=== PATIENT | male | born 1950 | race Caucasian/White ===

== ENCOUNTER 2022-12-16 22:29 | Inpatient (IN) | payer OTHER ==
--- OUTSIDE RECORDS SUMMARY | 2022-12-16 22:33 | XMS REPORT | Continuity of Care Document ---
:1950 Author Organization [facility] t Address [address] [place] [address] Care Team Providers Name Role Phone Villasana_T Attending Clinician Unavailable Villasana_T Admitting Clinician Unavailable Payers Payer Name Policy Type Policy Number Effective Date Expiration Date Lauri LEMUS (MEDICARE [id number] 2016 REPLACEMENT PPO) 00:00:00 Problems Condition Condition Condition Status Onset Resolution Last Treating Co mments Source Name Details Category Date Date Treatment Clinician Date Subclinica Subclinica Problem Active [facility] l 3-30 Family hyperthyro Hyperthyro 00:00: Pr actic idism idism 00 e Thyroiditi Thyroiditi Problem Active 2016-10 [facility] 2-13 Family 00:00: Practic 00 e Vitamin Vitamin Problem Active 2016-10 [facility] B12 B12 2-13 Family deficiency Deficiency 00:00: Pr actic (non (Non 00 e anemic) Anemic) Prediabete Prediabete Problem Active [facility] s 6-16 Family 00:00: Practic 00 e 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[facility] 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 00 e Nausea Nausea Problem Active 2014-102017-10-07 [facility] 1-10 00:00:00 Family 00:00: Practic 00 e Acute Acute Problem Active 2014-102017-04-10 [facility] thyroiditi Thyroiditi 2-14 00:00:00 Family s s 00:00: Practic 00 e High High Problem Active 2014-102017-04-10 [facility] hemoglobin Hemoglobin 2-14 00:00:00 Family A1c level a1C Level 00:00: Prac tic 00 e Toxic Toxic Problem Active 2014-102016-11-11 [facility] diffuse Diffuse 1-10 00:00:00 Family goiter Goiter 00:00: Practic with no with No 00 e crisis Crisis Allergies, Adverse Reactions, Alerts Allergy Allergy Status Severity Reaction(s) Onset Inactive Treating Comm ents Source Name Type Date Date Clinician Gala Allergy Active 2014-10 [facility] 11-04 Family substanc 00:00: Practic e 00 e Social History Smoking Status Start Date Stop Date Source Never Smoker [facility] Medications Ordered Filled Start Stop Current Ordering Indication Dosage Frequency Signature Comments Components Source Medication Medication Date Date Medication? Clinician (SIG) Name Name aspirin 81 aspirin 81 No 1 Q1D aspirin 81 [facility] mg mg mg Family tablet,maximo tablet,maximo tablet,del Practic yed release yed release ayed e Take 1 Take 1 release tablet tablet Take 1 every day every day tablet by oral by oral every day route. route. by oral route. melatonin melatonin No melatonin [facility] take (5mg) take (5mg) take (5mg) Family 1 tablet 1 tablet 1 tablet Pra ctic daily daily daily e metformin metformin No metformin [facility] ER 500 mg ER 500 mg ER 500 mg Family tablet,exte tablet,exte tablet,ext Practic nded nded ended e release 24 release 24 release 24 hr hr hr OneTouch OneTouch No OneTouch Ovidio william Delica Delica Delica Family Lancets 30 Lancets 30 Lancets 30 Practic gauge gauge gauge e OneTouch OneTouch No OneTouch Ovidio william Verio Verio Verio Family strips strips strips Practic e pravastatin pravastatin No pravastati [facility] 20 mg 20 mg n 20 mg Family tablet tablet tablet Practic e Vitamin B12 Vitamin B12 No Vitamin [facility] 5000 mcg 5000 mcg B12 5000 Fam sommer daily daily mcg daily Practic e Flucelvax Flucelvax 2017- No Flucelvax [facility] Quad 01-22 Quad Family 00:00 [id number] Practic (PF) 60 mcg (PF) 60 mcg :00 (PF) 60 e (15 mcg x (15 mcg x mcg (15 4)/0.5 mL 4)/0.5 mL mcg x IM syringe IM syringe 4)/0.5 mL IM syringe Lumigan Stephon 2017- No Stephon [facility] 0.01 % eye 0.01 % eye 01-22 0.01 % eye Family drops drops 00:00 drops Practic :00 e Prevnar 13 Prevnar 13 2018- No Prevnar 13 [facility] (PF) 0.5 mL (PF) 0.5 mL 01-22 (PF) 0.5 Family intramuscul intramuscul 00:00 mL Practic ar syringe ar syringe :00 intramuscu e lar syringe One Touch One Touch One Touch [facility] test strips test strips 10-07 test Family check blood check blood 00:00 strips Practic sugars once sugars once :00 check e a day a day blood sugars once a day azithromyci azithromyci azithromyc [facility] n 250 mg n 250 mg 04-10 in 250 mg F amily tablet tablet 00:00 tablet Practic :00 e propranolol propranolol propranolo [facility] 10 mg 10 mg 04-10 l 10 mg Family tablet tablet 00:00 tablet Practic :00 e Vital Signs Vital Name Observation Time Observation Value Comments Source BP Diastolic 2018-01-22 00:00:00 84 mm[Hg] [facility] Height 2018-01-22 00:00:00 66 [in_i] [facility] BMI (Body Mass 2018-01-22 00:00:00 29.1 kg/m2 [facility] BP Systolic 2018-01-22 00:00:00 136 mm[Hg] [facility] Body Weight 2018-01-22 00:00:00 180 [lb_av] [facility] BP Diastolic 2017-10-07 00:00:00 70 mm[Hg] [facility] Height 2017-10-07 00:00:00 66 [in_i] [facility] BMI (Body Mass 2017-10-07 00:00:00 30.2 kg/m2 [facility] BP Systolic 2017-10-07 00:00:00 150 mm[Hg] [facility] Body Weight 2017-10-07 00:00:00 187 [lb_av] [facility] BP Diastolic 2017-04-10 00:00:00 83 mm[Hg] [facility] Height 2017-04-10 00:00:00 66 [in_i] [facility] BMI (Body Mass 2017-04-10 00:00:00 27.8 kg/m2 [facility] BP Systolic 2017-04-10 00:00:00 139 mm[Hg] [facility] Body Weight 2017-04-10 00:00:00 172 [lb_av] [facility] BP Diastolic 2016-11-11 00:00:00 86 mm[Hg] [facility] Height 2016-11-11 00:00:00 66 [in_i] [facility] BMI (Body Mass 2016-11-11 00:00:00 29.4 kg/m2 [facility] BP Systolic 2016-11-11 00:00:00 143 mm[Hg] [facility] Body Weight 2016-11-11 00:00:00 182 [lb_av] [facility] BP Diastolic 2016-04-08 00:00:00 76 mm[Hg] [facility] Height 2016-04-08 00:00:00 66 [in_i] [facility] BMI (Body Mass 2016-04-08 00:00:00 28.50 kg/m2 [facility] BP Systolic 2016-04-08 00:00:00 122 mm[Hg] [facility] Body Weight 2016-04-08 00:00:00 176.6 [lb_av] [facility] BP Diastolic 2016-01-09 00:00:00 74 mm[Hg] [facility] Height 2016-01-09 00:00:00 66 [in_i] [facility] BMI (Body Mass 2016-01-09 00:00:00 29.83 kg/m2 [facility] BP Systolic 2016-01-09 00:00:00 130 mm[Hg] [facility] Body Weight 2016-01-09 00:00:00 184.8 [lb_av] [facility] BP Diastolic 2015-11-20 00:00:00 80 mm[Hg] [facility] Height 2015-11-20 00:00:00 66 [in_i] [facility] BMI (Body Mass 2015-11-20 00:00:00 30.44 kg/m2 [facility] BP Systolic 2015-11-20 00:00:00 130 mm[Hg] [facility] Body Weight 2015-11-20 00:00:00 188.6 [lb_av] [facility] BP Diastolic 2015-10-08 00:00:00 80 mm[Hg] [facility] Height 2015-10-08 00:00:00 66 [in_i] [facility] BMI (Body Mass 2015-10-08 00:00:00 30.60 kg/m2 [facility] BP Systolic 2015-10-08 00:00:00 156 mm[Hg] [facility] Body Weight 2015-10-08 00:00:00 189.6 [lb_av] [facility] BP Diastolic 2015-09-04 00:00:00 82 mm[Hg] [facility] BP Systolic 2015-09-04 00:00:00 146 mm[Hg] [facility] Height 2015-09-04 00:00:00 66 [in_i] [facility] BMI (Body Mass 2015-09-04 00:00:00 31.42 kg/m2 [facility] Family Index) Practice Body Weight 2015-09-04 00:00:00 194.7 [lb_av] [facility] Procedures Procedure Date / Time Performed Performing Clinician [facility] e [place], thyroid 2018-01-22 00:00:00 [facility] bone density 2018-01-22 00:00:00 [facility] [place], thyroid 2018-01-21 00:00:00 [facility] bone density 2017-10-09 00:00:00 [facility] Encounters Start End Encounter Admission Attending Care Care Encounter Source Date/Time Date/Time Type Type Clinicians Facility Department ID 2020-11-28 2020-11-28 [phone] [facility] 10:14:00 10:14:00 [id number] Family Practic e 2018-01-22 2018-01-22 Hope D [facility] [place] - [id number] [facility] 00:00:00 00:00:00 Leela Glass: [id number] [place] [address], [place] [id number] , Ph. 2017-10-07 2017-10-07 [facility] D [facility] [place] - [id number] [facility] 00:00:00 00:00:00 Leela Glass: [id number] - e [facility] [address], [place] [address] , Ph. 2017-04-10 2017-04-10 [facility] D [facility] [place] - [id number] [facility] 00:00:00 00:00:00 Leela Glass: [id number] - e [facility] [address], [place] [address] , Ph. 2016-11-11 2016-11-11 Grace Parra [facility] [place] - [id number] V illage 00:00:00 00:00:00 Leela Glass: [id number] - e [facility], [facility] [address], [place] [address] , Ph. Results Test Description Test Time Test Comments Results Result Comments Source Cobalamin (Vitamin B12) [Mass/volume] in Serum or Plasma 201 05-06-15 11:09:00 Test Item Value Reference Range Interpretation Comme nts vitamin B12 (test code = vitamin B12) >2000 213-816 H [facility] - Serum or Plasma 2017-10-08 15:34:00 Test Item Value Reference Range Interpretation Comments ALT (test code = ALT) 30 U/L 0-55 AST (test code = AST) 25 U/L 5-34 BUN (test code = BUN) 18.9 mg/dL 8.4-25.7 alk phos (test code = alk phos) 76 unit/L 40-150 glucose (test code = glucose) 106 mg/dL 70-99 H albumin (test code = albumin) 3.7 g/dL 3.5-5.0 creatinine (test code = 0.78 mg/dL 0.72-1.25 creatinine) eGFR non- (test >60 >60 code = eGFR non-) total bilirubin (test code = 0.6 mg/dL 0.2-1.2 total bilirubin) eGFR - (test >60 >60 code = eGFR - ) sodium (test code = sodium) 142 mEq/L 136-145 potassium (test code = potassium) 4.1 mEq/L 3.5-5.1 chloride (test code = chloride) 109 mmol/L 98-107 H total protein (test code = total 6.3 g/dL 6.4-8.3 L protein) calcium (test code = calcium) 9.1 mg/dL 8.8-10.0 CO2 (test code = CO2) 29.2 mmol/L 23.0-31.0 anion gap (test code = anion gap) 4 calc [facility] [Mass/volume] in Serum or [id number] 15:34:00 Test Item Value Reference Range Interpretation Comments T3 free (test code = T3 free) 3.27 pg/mL 1.71-3.71 [facility] [Mass/volume] in Serum or Plasma 2017-10-08 15:34:00 Test Item Value Reference Range Interpretation Comments T4 free (test code = T4 free) 1.27 NG/dL 0.70-1.48 [facility] [Units/volume] in Serum or [id number] 15:34:00 Test Item Value Reference Range Interpretation Comments TSH (test code = TSH) 0.003 uIU/mL 0.350-4.940 L [facility] Free [Mass/volume] in Serum or [id number] 07:25:00 Test Item Value Reference Range Interpretation Comments T3 free (test code = T3 free) 2.2 pg/mL 1.7-3.7 [facility] [Mass/volume] in Serum or Plasma 2016-11-12 07:25:00 Test Item Value Reference Range Interpretation Comments T4 free (test code = T4 free) 1.2 NG/dL 0.7-1.5 [facility] [Units/volume] in Serum or [id number] 07:25:00 Test Item Value Reference Range Interpretation Comments TSH (test code = TSH) 0.0981 uIU/mL 0.3500-4.9400 L [facility]/Hemoglobin.total in [id number] 00:00:00 Test Item Value Reference Range Interpretation Comments hemoglobin A1C (test code 6.3 % of total HGB <5.7 H = hemoglobin A1C) EAG (mg/dL) (test code = 134 (calc) EAG (mg/dL)) EAG (mmol/L) (test code = 7.4 (calc) EAG (mmol/L)) [facility] - Serum or Plasma 2016-04-09 00:00:00 Test Item Value Reference Range Interpretation Comments glucose (test code = 100 mg/dL 65-99 H glucose) urea nitrogen (BUN) (test 25 mg/dL 7-25 code = urea nitrogen (BUN)) creatinine (test code = 0.94 mg/dL 0.70-1.25 creatinine) eGFR non-afr. gambian (test 84 mL/min/1.73m2 > or = 60 code = eGFR non-afr. gambian) eGFR (test 97 mL/min/1.73m2 > or = 60 code = eGFR ) BUN/creatinine ratio (test not applicable 6 code = BUN/creatinine ratio) sodium (test code = sodium) 136 mmol/L 135-146 potassium (test code = 5.0 mmol/L 3.5-5.3 potassium) chloride (test code = 102 mmol/L 98-110 chloride) carbon dioxide (test code = 22 mmol/L 19-30 carbon dioxide) calcium (test code = 9.3 mg/dL 8.6-10.3 calcium) protein, total (test code = 7.3 g/dL 6.1-8.1 protein, total) albumin (test code = 4.6 g/dL 3.6-5.1 albumin) globulin (test code = 2.7 g/dL (calc) 1.9-3.7 globulin) albumin/globulin ratio (test 1.7 (calc) 1.0-2.5 code = albumin/globulin ratio) bilirubin, total (test code 0.9 mg/dL 0.2-1.2 = bilirubin, total) alkaline phosphatase (test 84 U/L 40-115 code = alkaline phosphatase) AST (test code = AST) 22 U/L 10-35 ALT (test code = ALT) 24 U/L 9-46 [facility] [Units/volume] in Serum or [id number] 00:00:00 Test Item Value Reference Range Interpretation Comments TSH (test code = TSH) 0.16 mIU/L 0.40-4.50 L [facility] (T4) free [Mass/volume] in Serum or Plasma 2016-04-09 00:00:00 Test Item Value Reference Range Interpretation Comments T4, free (test code = T4, free) 1.2 NG/dL 0.8-1.8 [facility] Free [Mass/volume] in Serum or [id number] 00:00:00 Test Item Value Reference Range Interpretation Comments T3, free (test code = T3, free) 3.4 pg/mL 2.3-4.2 [facility] [Units/volume] in Serum or [id number] 00:00:00 Test Item Value Reference Range Interpretation Comments TSH (test code = TSH) 0.04 mIU/L 0.40-4.50 L [facility] (T4[facility] free [Mass/volume] in Serum or Plasma 2016-01-10 00:00:00 Test Item Value Reference Range Interpretation Comments T4, free (test code = T4, free) 1.3 NG/dL 0.8-1.8 [facility] Free [Mass/volume] in Serum or [id number] 00:00:00 Test Item Value Reference Range Interpretation Comments T3, free (test code = T3, free) 3.8 pg/mL 2.3-4.2 [facility] A1c/Hemoglobin.total in [id number] 00:00:00 Test Item Value Reference Range Interpretation Comments hemoglobin A1C (test code 6.5 % of total HGB <5.7 H = hemoglobin A1C) EAG (mg/dL) (test code = 140 (calc) EAG (mg/dL)) EAG (mmol/L) (test code = 7.7 (calc) EAG (mmol/L)) [facility] [Units/volume] in Serum or [id number] 00:00:00 Test Item Value Reference Range Interpretation Comments TSH (test code = TSH) 0.09 mIU/L 0.40-4.50 L [facility] (T4) free [Mass/volume] in Serum or Plasma 2015-11-21 00:00:00 Test Item Value Reference Range Interpretation Comments T4, free (test code = T4, free) 1.3 NG/dL 0.8-1.8 [facility] Free [Mass/volume] in Serum or [id number] 00:00:00 Test Item Value Reference Range Interpretation Comments T3, free (test code = T3, free) 3.7 pg/mL 2.3-4.2 [facility]
[2022-12-16 23:51] LABS: Protime INR 1.16
[2022-12-17 00:03] LABS: Absolute Lymphocytes (CBC) 0.5 K/uL (0.7-4.9); Hematocrit 44.6 % (39.6-49.0); Lymphocytes % 5.1 % (15.3-44.8); MCV 92.8 fL (80-100); MPV 8.2 fL (7.6-11.3); RBC Red Blood Cell Count 4.81 M/uL (4.33-5.43)
[2022-12-17 00:30] LABS: Albumin 3.6 g/dL (3.4-5.0); Bilirubin Direct 0.2 mg/dL (0-0.2); Bilirubin Total 0.6 mg/dL (0.2-1.0); Potassium 4.1 mmol/L (3.5-5.1); Protein, Total 7.2 g/dL (6.4-8.2); Troponin High Sensitivity 50.8 pg/mL (<58.9)
[2022-12-17] MEDS ORDERED: FOLIC ACID 1 MG TABLET ONE (01:00)
[2022-12-17] MEDS ORDERED: CLOPIDOGREL 75 MG TABLET ONE (01:00)
[2022-12-17] MEDS ORDERED: ASPIRIN EC 325 MG TABLET PO ONE (01:01)
--- NOTE | 2022-12-17 01:11 | EDPHYS ---
Physician Documentation [facility] Name: Savage Ignacio Age: 72 yrs Sex: Male : 1950 Arrival Date: 12/16/2022 Time: 22:33 Bed 14 Private MD: ED Physician Kendell Little HPI: 12/17 03:04 This 72 yrs old Male presents to ER via Wheelchair with complaints of Altered Mental kdr Status. 03:04 Patient was brought to the hospital this evening by a friend who reports that a [facility] neighbor had seen him pull into his driveway in an odd manner around 2:00 today. Somewhat later the patient was checked on by the neighbor and found that he was sleeping in the car in his driveway. He did not further intervene at that time but later this evening a neighbor from across the street who brought him to the ED checked on him. He found his speech to be confused and not at his baseline. Seem to be having some aphasia. He was also confused and unable to name the month.. Onset: The symptoms/episode began/occurred this morning, today. Severity of symptoms: At their worst the symptoms were mild moderate just prior to arrival, in the emergency department the symptoms are unchanged. The patient has not experienced similar symptoms in the past. The patient has not recently seen a physician. Exact onset of his altered mental status and speech difficulty is not known. Again the patient was noted to have pulled into his driveway but at an auto angle somewhere around 2:00 today. Did not get out of the car at that time but apparently went to sleep. Historical: - Allergies: 12/16 22:57 Codeine; pf1 - Home Meds: 12/17 00:46 metformin 500 mg Oral tab 1 tab 2 times per day [Active]; pravastatin 20 mg oral tab 1 kl tab once daily [Active]; lumican [Active]; - PMHx: 00:46 Chrohns; NIDDM; Hypercholesterolemia; kl - PSHx: 00:46 colostomy; kl - Immunization history:: Adult Immunizations up to date. - Social history:: Smoking status: Patient denies any tobacco usage or history of. ROS: 03:04 Constitutional: Negative for fever, chills, and weight loss, Eyes: Negative for injury, kdr pain, redness, and discharge, Neck: Negative for injury, pain, and swelling, Cardiovascular: Negative for chest pain, palpitations, and edema, Respiratory: Negative for shortness of breath, cough, wheezing, and pleuritic chest pain, Abdomen/GI: Negative for abdominal pain, nausea, vomiting, diarrhea, and constipation, Back: Negative for injury and pain, : Negative for injury, bleeding, discharge, and swelling, MS/Extremity: Negative for injury and deformity, Skin: Negative for injury, rash, and discoloration, Psych: Negative for depression, anxiety, suicide ideation, homicidal ideation, and hallucinations, Allergy/Immunology: Negative for hives, rash, and allergies, Endocrine: Negative for neck swelling, polydipsia, polyuria, polyphagia, and marked weight changes, Hematologic/Lymphatic: Negative for swollen nodes, abnormal bleeding, and unusual bruising. 03:04 Neuro: Positive for altered mental status, speech changes, weakness. Exam: 03:04 Constitutional: This is a well developed, well nourished patient who is awake, alert, kdr and in no acute distress. Head/Face: Normocephalic, atraumatic. Eyes: Pupils equal round and reactive to light, extra-ocular motions intact. Lids and lashes normal. Conjunctiva and sclera are non-icteric and not injected. Cornea within normal limits. Periorbital areas with no swelling, redness, or edema. Neck: Trachea midline, no thyromegaly or masses palpated, and no cervical lymphadenopathy. Supple, full range of motion without nuchal rigidity, or vertebral point tenderness. No Meningismus. Chest/axilla: Normal chest wall appearance and motion. Nontender with no deformity. No lesions are appreciated. Cardiovascular: Regular rate and rhythm with a normal S1 and S2. No gallops, murmurs, or rubs. Normal PMI, no JVD. No pulse deficits. Respiratory: Lungs have equal breath sounds bilaterally, clear to auscultation and percussion. No rales, rhonchi or wheezes noted. No increased work of breathing, no retractions or nasal flaring. Abdomen/GI: Soft, non-tender, with normal bowel sounds. No distension or tympany. No guarding or rebound. No evidence of tenderness throughout. Back: No spinal tenderness. No costovertebral tenderness. Full range of motion. Skin: Warm, dry with normal turgor. Normal color with no rashes, no lesions, and no evidence of cellulitis. MS/ Extremity: Pulses equal, no cyanosis. Neurovascular intact. Full, normal range of motion. Psych: Awake, alert, with orientation to person, place and time. Behavior, mood, and affect are within normal limits. 03:04 Neuro: Orientation: Patient is oriented to place and year but not circumstances or month. Vital Signs: 12/16 22:52 BP 142 / 76; Pulse 95; Resp 18; Temp 100.2; Pulse Ox 98% on R/A; Weight 86.18 kg; pf1 Height 5 ft. 8 in. (172.72 cm); Pain 0/10; 12/17 00:50 BP 136 / 62; Pulse 87; Resp 16; Pulse Ox 94% ; Weight 89.36 kg (M); Height 5 ft. 8 in. kl (172.72 cm); 02:03 BP 142 / 66; Pulse 82; Resp 18; Pulse Ox 95% on R/A; kl 04:22 BP 136 / 71; Pulse 80; Resp 18; Temp 99.6(O); Pulse Ox 99% on R/A; kl 00:50 Body Mass Index 29.95 (89.36 kg, 172.72 cm) kl NIH Stroke Scale Scores: 12/16 23:42 NIHSS Score: 1 kl MDM: 12/17 01:11 Patient medically screened. kdr 03:04 Data reviewed: vital signs, nurses notes, lab test result(s), radiologic studies. kdr Management of patient was discussed with the following: Primary Care Provider: poli. I considered the following discharge prescriptions or medication management in the emergency department Medications were administered in the Emergency Department. See MAR. Counseling: I had a detailed discussion with the patient and/or guardian regarding: the historical points, exam findings, and any diagnostic results supporting the discharge/admit diagnosis, lab results, radiology results, the need for further work-up and treatment in the hospital. 12/16 22:56 Order name: Basic Metabolic Panel kdr 12/16 22:56 Order name: CBC with Diff kdr 12/16 22:56 Order name: Hepatic Function kdr 12/16 22:56 Order name: High Sensitivity Troponin kdr 12/16 22:56 Order name: Protime (+inr) kdr 12/16 22:56 Order name: Ptt, Activated kdr 12/16 22:58 Order name: Glucose, Ancillary Testing; Complete Time: 00:14 EDMS 12/16 23:14 Order name: Urine Culture kdr 12/16 23:51 Order name: Protime (+INR); Complete Time: 00:14 EDMS 12/16 23:51 Order name: PTT, Activated Partial Thromb; Complete Time: 00:14 EDMS 12/17 00:15 Order name: CBC with Automated Diff; Complete Time: 00:19 EDMS 12/17 00:30 Order name: Basic Metabolic Panel; Complete Time: 00:31 EDMS 12/17 00:30 Order name: Liver (Hepatic) Function; Complete Time: 00:31 EDMS 12/17 00:30 Order name: Troponin High Sensitivity; Complete Time: 00:31 EDMS 12/16 22:56 Order name: CT Stroke Brain w/o Contrast kdr 12/16 22:56 Order name: Stroke CXR 1 View kdr 12/16 22:56 Order name: EKG; Complete Time: 22:58 kdr 12/17 00:17 Order name: CT Neck Angio kdr 12/17 00:17 Order name: CT Head Angio kdr 12/17 00:54 Order name: SARS RAPID bb 12/17 06:12 Order name: SARS-COV-2 Antigen Rapid; Complete Time: 08:06 EDMS 12/17 07:54 Order name: Troponin High Sensitivity; Complete Time: 08:06 EDND 12/17 09:47 Order name: MRI; Complete Time: 10:11 EDMS 12/17 09:53 Order name: MRI; Complete Time: 10:11 EDND 12/17 10:16 Order name: MRI; Complete Time: 10:21 EDND 12/17 11:00 Order name: Urine Dipstick-Ancillary EDND 12/16 22:56 Order name: Accucheck; Complete Time: 00:59 kdr 12/16 22:56 Order name: Cardiac monitoring; Complete Time: 00:59 kdr 12/16 22:56 Order name: EKG - Nurse/Tech; Complete Time: 00:59 kdr 12/16 22:56 Order name: IV Saline Lock; Complete Time: 23:24 kdr 12/16 22:56 Order name: Labs collected and sent; Complete Time: 23:24 kdr 12/16 22:56 Order name: NPO; Complete Time: 00:59 kdr 12/16 22:56 Order name: O2 Per Protocol; Complete Time: 00:59 kdr 12/16 22:56 Order name: O2 Sat Monitoring; Complete Time: 00:59 kdr 12/16 22:56 Order name: Stroke Swallow Screen; Complete Time: 00:58 kdr 12/16 23:14 Order name: Urine Dipstick-Ancillary (obtain specimen); Complete Time: 11:01 kdr 12/17 12:46 Order name: Diet Regular; Complete Time: 12:47 ph Administered Medications: 00:58 Drug: Aspirin 325 mg Route: PO; kl 05:37 Follow up: Response: No adverse reaction kl 00:58 Drug: PlaVIX (clopidogrel) 75 mg Route: PO; kl 05:37 Follow up: Response: No adverse reaction kl 00:58 Drug: foLIC Acid 1 mg Route: PO; kl 05:37 Follow up: Response: No adverse reaction kl 08:15 Drug: NS 0.9% 1000 ml Route: IV; Rate: 1 bolus; Site: right antecubital; ap3 Point of Care Testing: Blood Glucose: 04: Blood Glucose: 193 mg/dL; kl Ranges: Critical Glucose Levels:Adult <50 mg/dl or >400 mg/dl <40 mg/dl or >180 mg/dl Disposition Summary: 12/17/22 01:11 Hospitalization Ordered Hospitalization Status: Inpatient Admission kdr Provider: Fred Rolon Condition: Stable kdr Problem: new kdr Symptoms: have improved kdr Bed/Room Type: Standard kdr Location: Telemetry/MedSurg (Inpatient)(12/17/22 13:30) em1 Room Assignment: [facility](12/17/22 13:30) em1 Diagnosis - Altered mental status, unspecified kdr - Confusion kdr Forms: - Medication Reconciliation Form kdr - SBAR form kdr NIH Stroke Scale - NIH Stroke Score Date: 12/16/2022 Time: 23:42 Total Score = 1 1a. Level of Consciousness (LOC) - 0(Alert) 1b. Level of Consciousness (LOC) (Month \T\ Age) - 1(One) 1c. LOC Commands (Open \T\ Closes Eyes/Scrap Baler) - 0(Both) 2. Best Gaze (Lateral Gaze Paresis) - 0(Normal) 3. Visual Field Loss - 0(No visual loss) 4. Facial Palsy - 0(Normal) 5a. Left Arm: Motor (10-second hold) - 0(No drift) 5b. Right Arm: Motor (10-second hold) - 0(No drift) 6a. Left Leg: Motor (5-second hold - always test supine) - 0(No drift) 6b. Right Leg: Motor (5-second hold - always test supine) - 0(No drift) 7. Limb Ataxia (finger/nose \T\ heel/teixeira - test with eyes open) - 0(Absent) 8. Sensory Loss (pinprick arms/legs/face) - 0(Normal) 9. Best Language: Aphasia (description/naming/reading) - 0(No aphasia) 10. Dysarthria (speech clarity - read or repeat words) - 0(Normal) 11. Extinction and Inattention (visual/tactile/auditory/spatial/personal) - 0(No abnormality) Initials: tanvi Signatures: Dispatcher [employer] EDJessica Mann, RN RN Kendell Ling MD MD cha Rittger, Kevin, MD MD kdr Martinez, Eric em1 Sarah Brito RN RN cg Prokisch, Amanda, RN RN ap3 Santa nowak RN RN pf1 Corrections: (The following items were deleted from the chart) 05:43 01:11 Telemetry/MedSurg (Inpatient) kdr cg 05:43 01:11 kdr cg 13:30 05:43 [facility] ER HOLD cg em1 13:30 05:43 ERHOLD- cg em1
--- NOTE | 2022-12-17 01:11 | ER ---
Nurse's Notes [facility] Name: Savage Ignacio Age: 72 yrs Sex: Male : 1950 Arrival Date: 12/16/2022 Time: 22:33 Bed 14 Private MD: Diagnosis: Altered mental status, unspecified;Confusion Presentation: 12/16 22:52 Chief complaint: Friend and/or Co-Worker states: Patient having AMS,onset approximately pf1 1400 today. Neighbor stated patient's called from [place] today to have a welfare check and has found in his car asleep at 1400 today. FSBGL 192 in triage. Patient alert and orientated x 2 at this time. Ebola Screen: Patient negative for fever greater than or equal to 101.5 degrees Fahrenheit, and additional compatible Ebola Virus Disease symptoms. Initial Sepsis Screen: Does the patient meet any 2 criteria? No. Patient's initial sepsis screen is negative. Does the patient have a suspected source of infection? No. Patient's initial sepsis screen is negative. Risk Assessment: Do you want to hurt yourself or someone else? Patient reports no desire to harm self or others. 22:52 Method Of Arrival: Wheelchair pf1 22:52 Acuity: VILLA 2 pf1 23:40 Note pt can not recal events of day remembers eating lunch in [place] unsure of place. Onset of symptoms was December 16, 2022 at 14:00. 23:44 Note swallow screen performed pt able to handle secretions and 90cc water. 12/17 04:20 Coronavirus screen: Vaccine status: Patient reports receiving the 2nd dose of the covid kl vaccine. No acute neurological deficit is noted. Pre-hospital glucose is not applicable to this patient. Triage Assessment: 04:21 The onset of the patients symptoms was December 16, 2022 at 14:00. 04:22 Neuro: Reports pt denies deficit. Historical: - Allergies: 12/16 22:57 Codeine; pf1 - Home Meds: 12/17 00:46 metformin 500 mg Oral tab 1 tab 2 times per day [Active]; pravastatin 20 mg oral tab 1 kl tab once daily [Active]; lumican [Active]; - PMHx: 00:46 Chrohns; NIDDM; Hypercholesterolemia; kl - PSHx: 00:46 colostomy; kl - Immunization history:: Adult Immunizations up to date. - Social history:: Smoking status: Patient denies any tobacco usage or history of. Screenin/21 23:41 [facility] ED Fall Risk Assessment (Adult) History of falling in the last 3 months, kl including since admission No falls in past 3 months (0 pts) Confusion or Disorientation Yes (5 pts) Intoxicated or Sedated No (0 pts) Impaired Gait No (0 pts) Mobility Assist Device Used No (0 pt) Altered Elimination No (0 pt) Score/Fall Risk Level 3 or more points = High Risk Oriented to surroundings, Maintained a safe environment, Assessed \T\ reinforced patient's understanding of fall precautions, Hourly rounding (assess needs \T\ fall precautionary measures) done, Remained with patient while ambulating, Utilized family, sitter, or virtual director medical surgical as indicated. Abuse screen: Denies threats or abuse. Nutritional screening: No deficits noted. Tuberculosis screening: No symptoms or risk factors identified. Assessment: 23:15 General: Appears in no apparent distress. comfortable, Behavior is calm, cooperative. Pain: Denies pain. Neuro: Level of Consciousness is awake, alert, obeys commands, confused, Oriented to person, place, Wire Strander are equal bilaterally Moves all extremities. Full function Gait is steady, Speech is normal, Facial symmetry appears normal, Pupils are PERRLA, Pupil Size: 4 Intact Babinski is negative. Cardiovascular: No deficits noted. Respiratory: No deficits noted. GI: No deficits noted. No signs and/or symptoms were reported involving the gastrointestinal system. : No deficits noted. No signs and/or symptoms were reported regarding the genitourinary system. EENT: No deficits noted. No signs and/or symptoms were reported regarding the EENT system. Derm: No deficits noted. No signs and/or symptoms reported regarding the dermatologic system. 12/17 00:07 VAN Scoring: Arm Drift: Patients demonstrates NO arm weakness. Patient is VAN Negative. Visual Disturbance: No visual disturbance noted. Aphasia: No aphasia noted. Neglect: No neglect noted. Patient has been NPO before screening. The patient is alert, and able to follow commands. The patient does not exhibit slurred or garbled speech. The patient is not exhibiting difficulty speaking. The patient does not exhibit difficulty understanding words. The patient is able to swallow own secretions with no drooling or need for suction. Patient tolerated one teaspoon of water. No drooling, immediate coughing, gurgling, or clearing of the throat was noted. The patient tolerated 90mL of water. No drooling, immediate coughing, gurgling, or clearing of the throat was noted. The patient passed the bedside swallow screening. Oral medications may be given as ordered. Contact Physician for further diet orders. 00:49 GI: colostomy. kl 01:00 Reassessment: Patient appears in no apparent distress at this time. Patient and/or kl family updated on plan of care and expected duration. Pain level reassessed. Patient is alert, oriented x 3, equal unlabored respirations, skin warm/dry/pink. 02:20 General: Contact information: Dr. Castillo(neighbor) [phone]. pf1 Vital Signs: 12/16 22:52 BP 142 / 76; Pulse 95; Resp 18; Temp 100.2; Pulse Ox 98% on R/A; Weight 86.18 kg; pf1 Height 5 ft. 8 in. (172.72 cm); Pain 0/10; 12/17 00:50 BP 136 / 62; Pulse 87; Resp 16; Pulse Ox 94% ; Weight 89.36 kg (M); Height 5 ft. 8 in. kl (172.72 cm); 02:03 BP 142 / 66; Pulse 82; Resp 18; Pulse Ox 95% on R/A; kl 04:22 BP 136 / 71; Pulse 80; Resp 18; Temp 99.6(O); Pulse Ox 99% on R/A; kl 00:50 Body Mass Index 29.95 (89.36 kg, 172.72 cm) NIH Stroke Scale Scores: 12/16 23:42 NIHSS Score: 1 ED Course: 22:33 Patient arrived in ED. ja2 22:56 Ernesto Felton MD is Attending Physician. kdr 22:57 Triage completed. pf1 23:24 Inserted saline lock: 20 gauge in right antecubital area, using aseptic technique. ls5 Blood collected. 23:41 Patient has correct armband on for positive identification. 12/17 00:59 Stroke CXR 1 View Sent. kl 01:08 Fred Rolon MD is Hospitalizing Provider. kdr 01:25 SARS RAPID Sent. kl 03:00 No apparent distress. Resting quietly. Appears to be sleeping. kl 03:30 ppt p ambulatory to bathroom to empty colostomy gait steady linens changed room care kl completed. 04:21 No provider procedures requiring assistance completed. Patient admitted, IV remains in kl place. 04:21 Arm band placed on right wrist. EKG completed in triage. Results shown to MD. kl 08:06 Attending Physician role handed off by Ernesto Felton MD misael 08:06 Kendell Little MD is Attending Physician. misael 08:18 Arabella Decker RN is Primary Nurse. ap3 Administered Medications: 00:58 Drug: Aspirin 325 mg Route: PO; kl 05:37 Follow up: Response: No adverse reaction kl 00:58 Drug: PlaVIX (clopidogrel) 75 mg Route: PO; kl 05:37 Follow up: Response: No adverse reaction kl 00:58 Drug: foLIC Acid 1 mg Route: PO; kl 05:37 Follow up: Response: No adverse reaction kl 08:15 Drug: NS 0.9% 1000 ml Route: IV; Rate: 1 bolus; Site: right antecubital; ap3 Medication: 00:52 VIS not applicable for this client. Point of Care Testing: Blood Glucose: 04:22 Blood Glucose: 193 mg/dL; Ranges: Outcome: 01:11 Decision to Hospitalize by Provider. kdr 04:20 Admitted to ER Hold. Please see [facility] for further documentation. kl 04:20 Condition: stable 04:20 Discharge instructions given to patient, Instructed on the need for admit, Demonstrated understanding of instructions. 14:59 Patient left the ED. NIH Stroke Scale - NIH Stroke Score Date: 12/16/2022 Time: 23:42 Total Score = 1 1a. Level of Consciousness (LOC) - 0(Alert) 1b. Level of Consciousness (LOC) (Month \T\ Age) - 1(One) 1c. LOC Commands (Open \T\ Closes Eyes/Speech Correction Assistant) - 0(Both) 2. Best Gaze (Lateral Gaze Paresis) - 0(Normal) 3. Visual Field Loss - 0(No visual loss) 4. Facial Palsy - 0(Normal) 5a. Left Arm: Motor (10-second hold) - 0(No drift) 5b. Right Arm: Motor (10-second hold) - 0(No drift) 6a. Left Leg: Motor (5-second hold - always test supine) - 0(No drift) 6b. Right Leg: Motor (5-second hold - always test supine) - 0(No drift) 7. Limb Ataxia (finger/nose \T\ heel/teixeira - test with eyes open) - 0(Absent) 8. Sensory Loss (pinprick arms/legs/face) - 0(Normal) 9. Best Language: Aphasia (description/naming/reading) - 0(No aphasia) 10. Dysarthria (speech clarity - read or repeat words) - 0(Normal) 11. Extinction and Inattention (visual/tactile/auditory/spatial/personal) - 0(No abnormality) Initials: kl Signatures: Jessica Howell RN RN kl Anderson, Corey, MD MD cha Rittger, Kevin, MD MD kdr Hall, Patricia RN RN Arabella Decker RN RN ap3 Alice Mendoza Pamala, RN RN pf1 Delroy Simon ls5 Corrections: (The following items were deleted from the chart) 05:36 04:22 BP 136 / 71; Pulse 80bpm; Resp 18bpm; Pulse Ox 99% RA; kl kl 05:39 00:50 BP 136 / 62; Pulse 87bpm; Resp 16bpm; Pulse Ox 94%; 89.36 kg Measured; kl Height 5 ft. 10 in.; BMI: 28.2; kl
[2022-12-17] MEDS: NA CHLORIDE 0.9% 1,000 ML IV SCH ×2 (06:00→15:52)
[2022-12-17 06:12] LABS: SARS-CoV-2 Antigen Rapid Res Negative (Negative)
[2022-12-17 06:37] VITALS: BMI 29.9
[2022-12-17] MEDS: ASPIRIN EC 81 MG TAB PO SCH (08:01)
[2022-12-17] MEDS: CLOPIDOGREL 75 MG TABLET PO SCH (08:01)
[2022-12-17 08:08] VITALS: O2SAT 95
[2022-12-17] MEDS ORDERED: NA CHLORIDE 0.9% 1,000 ML ONE (08:14)
--- NOTE | 2022-12-17 09:46 | RAD REPORT ---
EXAM DESCRIPTION: MRI - MRA Head Wo Cont - 12/17/2022 9:39 am CLINICAL HISTORY: aphasia, confusion COMPARISON: Brain W/Wo Cont dated 12/17/2022; MRA Neck W/Wo Cont dated 12/17/2022 FINDINGS: 3D noncontrast [id number] MR angiography of the [place] of Cm was performed. No aneurysm, flow-limiting stenosis or vascular malformation is seen. Mild left dominant vertebral ar thomas. The visualized dural venous sinuses appear patent. IMPRESSION: No significant flow abnormality of the [place] of Cm is identified.
--- NOTE | 2022-12-17 09:53 | RAD REPORT ---
EXAM DESCRIPTION: MRI - Brain W/Wo Cont - 12/17/2022 9:39 am CLINICAL HISTORY: CONFUSION AND APHASIA COMPARISON: MRA Head Wo Cont dated 12/17/2022; Head angio dated 12/17/2022; Neck Angio dated 12/17/2022 ; MRA Neck W/Wo Cont dated 12/17/2022 TECHNIQUE: Sagittal T1-weighted images were obtained along with PD/heavily T2-weighted and T2-FLAIR images. Axial DWI and ADC mapping sequences were also obtained along with coronal heavily T2-weighted images were obtained. Post contrast enhanced images were obtained. FINDINGS: No intracranial hemorrhage, mass or acute infarction. No edema or shift of midline structu res. No extra-axial fluid collections. Signal voids are seen as a normal finding in the major intracr anial vessels. Mild chronic small vessel ischemic changes. Remote tiny right parietal cortical infarc t. No abnormal enhancement. Partially opacified right maxillary sinus.Paranasal sinuses are clear. IMPRESSION: No acute intracranial abnormality. No abnormal enhancement. Mild chronic small vessel is chemic changes. 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
--- NOTE | 2022-12-17 10:15 | RAD REPORT ---
EXAM DESCRIPTION: MRI - MRA Neck W/Wo Cont - 12/17/2022 9:39 am CLINICAL HISTORY: Confusion and aphasia COMPARISON: Neck CTA 12/17/2022. TECHNIQUE: Magnetic resonance angiogram of the neck was performed. MultiHance was administered intr avenously. 3D MIPS reconstruction performed FINDINGS: The common carotid, internal carotid and external carotid arteries do not demonstrate a si gnificant stenosis. An aneurysm is not seen. The vertebral arteries are codominant without visualization of an abnormality. IMPRESSION: No hemodynamically significant stenosis identified within the neck. NASCET criteria used. Mild 0-49% stenosis Moderate 50-69% stenosis Severe 70-99% stenosis
[2022-12-17 11:00] LABS: Urine Blood Trace-intact (Negative); Urine Glucose Negative (Negative); Urine Protein Trace (Negative); Urine Specific Gravity >=1.030 (1.005-1.030)
--- NOTE | 2022-12-17 15:21 | EKG ---
Test Date: 2022-12-17 Test Time: 01:00:39 Food Analyst: JULIAN MEASUREMENT RESULTS: Intervals: Rate: 96 MN: 184 QRSD: 138 QT: 408 QTc: 515 [place]: P: 2 MN: 184 QRS: 93 T: 27 INTERPRETIVE STATEMENTS: Normal sinus rhythm Right bundle branch block Abnormal ECG Compared to ECG 11/18/1994 15:45:00 Right bundle-branch block now present Electronically Signed On 12-17-22 15:19:18 GRAPHIC ART SALES REPRESENTATIVE by Jose G Faust
[2022-12-17] MEDS: ACETAMINOPHEN 500 MG TAB PO PRN (17:27)
[2022-12-17] MEDS: METFORMIN HCL 500 MG TAB PO SCH (17:27)
--- NOTE | 2022-12-17 18:20 | RAD REPORT ---
[facility] DES[facility]24 [facility] CLINICAL HISTORY: Checkup Admitted for altered mental status. For evaluation COMPARISON: Chest Single View dated 12/16/2022; CHEST PA AND LAT 2 VIEW dated 05/03/2012; CHEST PA AND LAT 2 VIEW dated 03/02/2006; MRA Neck W/Wo Cont dated 12/17/2022; Brain W/Wo Cont dated 12/17/2022 TECHNIQUE: Portable AP view of the chest. FINDINGS: The lungs show no focal airspace opacity.Progressive interstitial prominence, could reflec t worsening congestion. No pneumothorax or effusion. The cardiomediastinal contours are unremarkable. 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 . IMPRESSION: No focal airspace opacity. Progressive interstitial prominence, could reflect worsening central venous congestion.
--- NOTE | 2022-12-17 20:49 | RAD REPORT ---
EXAM DESCRIPTION: CT - Neck Angio - 12/17/2022 6:55 am CLINICAL HISTORY: The patient is 72 years old and is Male; speech changes TECHNIQUE: [place] of Cm/head and neck CT angiography protocol performed with intravenous contras t. This CT exam was performed using one or more of the following dose reduction techniques: autom ated exposure control, adjustment of the mA and/or kV according to patient size, and/or use of iterat roslyn reconstruction technique. MIP reconstructed images were created and reviewed. DLP: 437 mGy*cm COMPARISON: CT head without contrast of the same day. FINDINGS: HEAD: RIGHT ANTERIOR CEREBRAL ARTERY: Unremarkable. No significant stenosis at the visualized segments . Anterior communicating artery is present. No aneurysm. RIGHT MIDDLE CEREBRAL ARTERY: Unremarkable. No significant stenosis at the visualized segments. No aneurysm. RIGHT POSTERIOR CEREBRAL ARTERY: Unremarkable. No occlusion or significant stenosis. No aneury sm. RIGHT INTRACRANIAL INTERNAL CAROTID ARTERY: Unremarkable. No significant stenosis. No dissecti on or occlusion. RIGHT INTRACRANIAL VERTEBRAL ARTERY: Advanced stenosis of the intracranial segment of the bilatera l vertebral arteries. No dissection or occlusion. LEFT ANTERIOR CEREBRAL ARTERY: Unremarkable. No significant stenosis at the visualized segments. No aneurysm. LEFT MIDDLE CEREBRAL ARTERY: Unremarkable. No significant stenosis at the visualized segments. No aneurysm. LEFT POSTERIOR CEREBRAL ARTERY: Unremarkable. No occlusion or significant stenosis. No aneurys m. LEFT INTRACRANIAL INTERNAL CAROTID ARTERY: Unremarkable. No significant stenosis. No dissectio n or occlusion. LEFT INTRACRANIAL VERTEBRAL ARTERY: See above. BASILAR ARTERY: Unremarkable. No significant stenosis. No aneurysm. OTHER VASCULATURE: No vascular malformation. BRAIN AND EXTRA-AXIAL SPACES: Cerebral volume loss and chronic small vessel ischemic changes. No hy drocephalus. No hemorrhage. SINUSES: Right maxillary sinus disease. NECK: RIGHT COMMON CAROTID ARTERY: Unremarkable. No significant stenosis. No dissection or occlusion . RIGHT EXTRACRANIAL INTERNAL CAROTID ARTERY: Unremarkable. No significant stenosis. No dissecti on or occlusion. RIGHT EXTERNAL CAROTID ARTERY: Unremarkable. No occlusion. RIGHT EXTRACRANIAL VERTEBRAL ARTERY: Unremarkable. No significant stenosis. No dissection or o cclusion. LEFT COMMON CAROTID ARTERY: Unremarkable. No significant stenosis. No dissection or occlusion. LEFT EXTRACRANIAL INTERNAL CAROTID ARTERY: Unremarkable. No significant stenosis. No dissectio n or occlusion. LEFT EXTERNAL CAROTID ARTERY: Unremarkable. No occlusion. LEFT EXTRACRANIAL VERTEBRAL ARTERY: Unremarkable. No significant stenosis. No dissection or oc clusion. LUNG APICES: Unremarkable as visualized. HEAD and NECK: BONES/JOINTS: Reversal of cervical lordosis and lower cervical degenerative changes. No discrete lytic or blastic abnormalities. SOFT TISSUES: Unremarkable. CAROTID STENOSIS REFERENCE USING NASCET CRITERIA: % ICA stenosis = (1 - narrowest ICA diameter/diameter of distal cervical ICA) x 100. Mild - <50% stenosis. Moderate - 50-69% stenosis. Severe - 70-94% stenosis. Near occlusion - 95-99% stenosis. Occluded - 100% stenosis. IMPRESSION: 1. No intracranial large vessel occlusion. No cervical foraminal stenosis. 2. 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 3. Cerebral volume loss and chronic small vessel ischemic changes. Consider MRI brain for further evaluation. 4. Right maxillary sinus disease. 5. Reversal of cervical lordosis and lower cervical degenerative changes. Electronically signed by: Sergio Garcia DO 12/17/2022 1:43 AM CIRCULAR TANK COOPER Due to temporary technical issues with the PACS/Fluency reporting system, reports are being signed by the in house radiologists without review as a courtesy to insure prompt reporting. The interpreting radiologist is fully responsible for the content of the report.
--- NOTE | 2022-12-17 20:52 | RAD REPORT ---
EXAM DESCRIPTION: CT - Head angio - 12/17/2022 6:[address] Angiography Head and Neck With Intravenous Contrast CLINICAL HISTORY: The patient is 72 years old and is Male; speech changes TECHNIQUE: [place] of [facility]m/head and neck CT angiography protocol performed with intravenous contras t. This CT exam was performed using one or more of the following dose reduction techniques: autom ated exposure control, adjustment of the mA and/or kV according to patient size, and/or use of iterat roslyn reconstruction technique. MIP reconstructed images were created and reviewed. DLP: 437 mGy*cm COMPARISON: CT head without contrast of the same day. FINDINGS: HEAD: RIGHT ANTERIOR CEREBRAL ARTERY: Unremarkable. No significant stenosis at the visualized segments . Anterior communicating artery is present. No aneurysm. RIGHT MIDDLE CEREBRAL ARTERY: Unremarkable. No significant stenosis at the visualized segments. No aneurysm. RIGHT POSTERIOR CEREBRAL ARTERY: Unremarkable. No occlusion or significant stenosis. No aneury sm. RIGHT INTRACRANIAL INTERNAL CAROTID ARTERY: Unremarkable. No significant stenosis. No dissecti on or occlusion. RIGHT INTRACRANIAL VERTEBRAL ARTERY: Advanced stenosis of the intracranial segment of the bilatera l vertebral arteries. No dissection or occlusion. LEFT ANTERIOR CEREBRAL ARTERY: Unremarkable. No significant stenosis at the visualized segments. No aneurysm. LEFT MIDDLE CEREBRAL ARTERY: Unremarkable. No significant stenosis at the visualized segments. No aneurysm. LEFT POSTERIOR CEREBRAL ARTERY: Unremarkable. No occlusion or significant stenosis. No aneurys m. LEFT INTRACRANIAL INTERNAL CAROTID ARTERY: Unremarkable. No significant stenosis. No dissectio n or occlusion. LEFT INTRACRANIAL VERTEBRAL ARTERY: See above. BASILAR ARTERY: Unremarkable. No significant stenosis. No aneurysm. OTHER VASCULATURE: No vascular malformation. BRAIN AND EXTRA-AXIAL SPACES: Cerebral volume loss and chronic small vessel ischemic changes. No hy drocephalus. No hemorrhage. SINUSES: Right maxillary sinus disease. NECK: RIGHT COMMON CAROTID ARTERY: Unremarkable. No significant stenosis. No dissection or occlusion . RIGHT EXTRACRANIAL INTERNAL CAROTID ARTERY: Unremarkable. No significant stenosis. No dissecti on or occlusion. RIGHT EXTERNAL CAROTID ARTERY: Unremarkable. No occlusion. RIGHT EXTRACRANIAL VERTEBRAL ARTERY: Unremarkable. No significant stenosis. No dissection or o cclusion. LEFT COMMON CAROTID ARTERY: Unremarkable. No significant stenosis. No dissection or occlusion. LEFT EXTRACRANIAL INTERNAL CAROTID ARTERY: Unremarkable. No significant stenosis. No dissectio n or occlusion. LEFT EXTERNAL CAROTID ARTERY: Unremarkable. No occlusion. LEFT EXTRACRANIAL VERTEBRAL ARTERY: Unremarkable. No significant stenosis. No dissection or oc clusion. LUNG APICES: Unremarkable as visualized. HEAD and NECK: BONES/JOINTS: Reversal of cervical lordosis and lower cervical degenerative changes. No discrete lytic or blastic abnormalities. SOFT TISSUES: Unremarkable. CAROTID STENOSIS REFERENCE USING NASCET CRITERIA: % ICA stenosis = (1 - narrowest ICA diameter/diameter of distal cervical ICA) x 100. Mild - <50% stenosis. Moderate - 50-69% stenosis. Severe - 70-94% stenosis. Near occlusion - 95-99% stenosis. Occluded - 100% stenosis. IMPRESSION: 1. No intracranial large vessel occlusion. No cervical foraminal stenosis. 2. 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 3. Cerebral volume loss and chronic small vessel ischemic changes. Consider MRI brain for further evaluation. 4. Right maxillary sinus disease. 5. Reversal of cervical lordosis and lower cervical degenerative changes. Electronically signed by: Sergio Garcia DO 12/17/2022 1:43 AM BELT TENDER Due to temporary technical issues with the PACS/Fluency reporting system, reports are being signed by the in house radiologists without review as a courtesy to insure prompt reporting. The interpreting radiologist is fully responsible for the content of the report.
--- NOTE | 2022-12-17 20:57 | RAD REPORT ---
EXAM DESCRIPTION: CT - Ct Stroke Brain Wo Cont - 12/17/2022 6:56 am ADDENDUM #1 THIS REPORT CONTAINS FINDINGS THAT MAY BE CRITICAL TO PATIENT CARE: The findings were verbally discu ssed via telephone conference with Ernesto Felton MD on 12/16/2022 at 11:31 PM INVESTIGATOR FRAUD. Electronically signed by: Robert Singleton MD 12/16/2022 11:31 PM INVESTIGATOR FRAUD End of Addendum EXAM DESCRIPTION: Ct Stroke Brain Wo Cont CLINICAL HISTORY: 72 years Male STROKE ALERT TECHNIQUE: Axial noncontrast CT head with coronal and sagittal reformats. All CT scans at this facil ity use dose modulation, iterative reconstruction, and/or weight based dosing when appropriate to red uce radiation dose to as low as reasonably achievable. COMPARISON: None. FINDINGS: Brain: Parenchymal volume loss. Chronic small vessel disease. No obvious large acute babak torial infarction. No intracranial hemorrhage, midline shift, mass or mass effect. Atherosclerotic ca lcification of the intracranial vasculature. Ventricles: No hydrocephalus. Orbits: Unremarkable. Sinuses: Near complete opacification of the right maxillary sinus. Mastoid: Clear. Osseous: Unremarkable. Soft tissues: Unremarkable. IMPRESSION: 1. No acute CT abnormality. 2. Aspects score of 10. 3. Near complete opacification of the right maxillary sinus. Electronically signed by: Robert Singleton MD 12/16/2022 11:27 PM INVESTIGATOR FRAUD Due to temporary technical issues with the PACS/Fluency reporting system, reports are being signed by the in house radiologists without review as a courtesy to insure prompt reporting. The interpreting radiologist is fully responsible for the content of the report.
[2022-12-17] MEDS ORDERED: DIPHENOX/ATROP SULF 1 TAB PO ONE (20:58)
[2022-12-17] MEDS ORDERED: DIPHENOX/ATROP SULF 1 TAB PO PRN (20:59)
[2022-12-17] MEDS ORDERED: D50W 25 GM/50 ML SYRINGE IV PRN (21:00)
[2022-12-17] MEDS ORDERED: GLUCAGON 1 MG/VIAL IM PRN (21:00)
--- NOTE | 2022-12-17 21:01 | RAD REPORT ---
EXAM DESCRIPTION: RAD - Chest Single View - 12/16/2022 11:33 pm CLINICAL HISTORY: The patient is 72 years old and is Male; AMS TECHNIQUE: Frontal view of the chest. COMPARISON: No relevant prior studies available. FINDINGS: Lungs: Prominent interstitial markings which may indicate mild interstitial edema. Pleural space: Blunting of the left costophrenic angle which may indicate left pleural effusion. No pneumothorax. Heart: Unremarkable. Mediastinum: Unremarkable. Bones/joints: Unremarkable. Upper abdomen: Elevation of the left hemidiaphragm. IMPRESSION: 1. Prominent interstitial markings which may indicate mild interstitial edema. 2. Blunting of the left costophrenic angle which may indicate left pleural effusion. Electronically signed by: Jose Pineda MD 12/16/2022 11:46 PM CONDUIT INSTALLER Due to temporary technical issues with the PACS/Fluency reporting system, reports are being signed by the in house radiologists without review as a courtesy to insure prompt reporting. The interpreting radiologist is fully responsible for the content of the report.
[2022-12-17] MEDS ORDERED: D10W 125 ML IV PRN (21:05)
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
[2022-12-18 03:13] LABS: Absolute Lymphocytes (CBC) 0.6 K/uL (0.7-4.9); Hematocrit 41.9 % (39.6-49.0); Lymphocytes % 15.2 % (15.3-44.8); MCV 91.6 fL (80-100); MPV 8.2 fL (7.6-11.3); RBC Red Blood Cell Count 4.58 M/uL (4.33-5.43)
[2022-12-18 03:34] LABS: Potassium 3.7 mmol/L (3.5-5.1); Thyroid Stimulating Hormone 0.269 uIU/mL (0.358-3.740)
[2022-12-18] MEDS: ACETAMINOPHEN 500 MG TAB PO PRN (04:36)
[2022-12-18] MEDS: INSULIN -REGULAR HUMAN 50 UNIT/0.5 ML ML SQ SCH ×2 (07:30→11:30)
[2022-12-18] MEDS: ASPIRIN EC 81 MG TAB PO SCH (08:10)
[2022-12-18] MEDS: CLOPIDOGREL 75 MG TABLET PO SCH (08:10)
[2022-12-18] MEDS: METFORMIN HCL 500 MG TAB PO SCH (08:10)
[2022-12-18] MEDS: NA CHLORIDE 0.9% 1,000 ML IV SCH (08:40)
--- NOTE | 2022-12-18 12:17 | PN ---
Date of Progress Note: 12/17/2022 The patient was seen in the ER hold. He feels like pretty well back to normal, both mentally and phys ically, and he shows no deficit grossly. His workup has been essentially negative except for remote parietal infarct on the MRI of the brain. Awaiting neurological evaluation. HR/MODL Voice ID: [id number] Report ID: [id number]
[2022-12-18 13:15] VITALS: BP 149/74; TEMP 97.6
--- NOTE | 2022-12-18 18:31 | PN ---
Date of Progress Note: 12/18/2022 The patient had one episode of low-grade temperature earlier this morning. Since then he has been af ebrile, according to him and his who has been stable mentally. He does feel somewhat weak. How ever, he has been up and about and depending on the EEG findings, we will determine his next plan, wh ether now it was of viral etiology, meningeal and requiring a spinal tap to prove or it was unrelated to the febrile episode. Disposition will also depend on the findings. It should be variable later this afternoon. HR/MODL Voice ID: [id number] Report ID: [id number]
--- NOTE | 2022-12-19 09:36 | EEG ---
CHART: [id number] TEST ID#: [id number] DATE OF STUDY: 12/18/2022 THE EEG WAS RECORDED PORTABLE IN THE PATIENT'S ROOM ON A 17 CHANNEL MACHINE. ELECTRODES WERE APPLIED IN THE USUAL MANNER USING THE INTERNATIONAL 10-20 SYSTEM. THE WAKING BACKGROUND RHYTHM IN THIS RECORD CONSISTS OF VERY WELL DEVELOPED AND WELL ORGANIZED WAVES OF 9 HZ., MAXIMAL IN THE POSTERIOR HEAD REGIONS WHICH ATTENUATE NORMALLY WITH EYE OPENING. LOW-VOLTAGE 18-22 HZ ACTIVITY IS EXPRESSED IN THE FRONTAL REGIONS. THERE ARE NO FOCAL OR LATERALIZING FEATURES. NO EPILEPTIFORM ACTIVITY APPEARS. SLEEP DID NOT OCCUR. HYPERVENTILATION WAS NOT PERFORMED. PHOTIC STIMULATION PRODUCED FAIR DRIVING BILATERALLY. IMPRESSION: NORMAL EEG FOR THE AGE OF THE PATIENT IN [place].
== END 2022-12-18 14:32 | disposition home or self-care (01) | DRG 71 ==
LOC: ER 22:29 → ERHOLD 12-17 05:24 → 2ND 12-17 14:53
PROVIDERS: ADMIT Family Medicine; ATTEND Family Medicine
DX: G45.4 Transient global amnesia (principal); R47.01 Aphasia; E03.9 Hypothyroidism, unspecified; E78.5 Hyperlipidemia, unspecified; E11.9 Type 2 diabetes mellitus without complications; I45.10 Unspecified right bundle-branch block; R29.701 NIHSS score 1; Z88.5 Allergy status to narcotic agent; Z93.3 Colostomy status; Z79.84 Long term (current) use of oral hypoglycemic drugs; Z79.899 Other long term (current) drug therapy; Z20.822 Contact with and (suspected) exposure to COVID-19
CPT/HCPCS: 36415; 70450; 70496; 70498; 70544; 70549; 70553; 71045; 80048; 80061; 80076; 81003; 82550; 82947; 84153; 84443; 84484; 85025; 85610; 85730; 87040; 87811; 93005; 95816; 99285; A9577; J7030; Q9967